=== PATIENT | male | born 1960 | race Caucasian/White ===

== ENCOUNTER 2018-02-07 08:53 | Day surgery (SDC) | END 2018-02-07 14:43 | disposition home or self-care (01) ==

== ENCOUNTER 2018-09-13 23:38 | Emergency (ER) | payer OTHER ==
[~2018-09-13] VITALS: Ht 172.7 cm; Wt 63.6 kg
[~2018-09-13 23:38] MED LIST: CHOL100062 PO; QUET25TA PO
[2018-09-13 23:43] VITALS: Ht 172.7 cm; Wt 63.6 kg
[2018-09-14] MEDS ORDERED: ONDANSETRON (ODT) 4 MG TAB ODT STA (00:29)
[2018-09-14] MEDS ORDERED: HYDROCODONE/APAP (10/325) TAB PO ONE (00:30)
[2018-09-14] MEDS ORDERED: IBUP-1542 PO (02:03)
[2018-09-14 02:30] VITALS: BP 160/81; PULSE 67; RESP 19
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
== END 2018-09-14 02:32 | disposition home or self-care (01) ==
LOC: E/R 23:38
DX: M25.511 Pain in right shoulder (principal); M79.671 Pain in right foot; M79.672 Pain in left foot; M25.561 Pain in right knee; M25.562 Pain in left knee; F17.210 Nicotine dependence, cigarettes, uncomplicated
CPT/HCPCS: 73030; 73562; 73630; Z7502; Z7610